=== PATIENT | female | born 1970 | race Caucasian/White ===

== ENCOUNTER 2018-11-05 05:38 | Observation (INO) ==
[2018-11-05] MEDS ORDERED: Aspirin 81 MG TAB.CHEW PO ONE (05:46)
--- NOTE | 2018-11-05 05:50 | Emergency Department Note ---
Disposition Clinical Impression: Chest pain Qualifiers: Chest pain type: unspecified Qualified Code(s): R07.9 - Chest pain, unspecified Disposition: Still a Patient Condition: Good Forms: ED Satisfaction Letter Time of Disposition: 06:29 General Adult HPI - General Stated complaint: "Trouble with my chest". Time Seen by Provider: 11/05/18 05:43 Source: patient Limitations: no limitations Nursing Notes Reviewed: Yes Vital Signs Reviewed: Yes - History of Present Illness HPI Narrative: 48-year-old female smoker presents by private vehicle from home with complaint of chest pain. She describes it as crushing and squeezing. She states that tonight's episode is the third time this happened in the past week and a half. She describes as substernal but also feels it in her mid scapular region, and states that it radiates to her left arm and the top of her shoulder. She feels it is not more severe tonight, however since it has persisted each night she was worried which prompted her visit to the emergency department. She states that her pain is now 4 out of 10, states it was more severe earlier. She denies any history CAD, PE [place], but does describe having a Approximately 10 years ago after which she was diagnosed with "pleurisy" . She denies any recent illness, abdominal pain, cough, hemoptysis, rash, diaphoresis. Pain Scale: 4 - Related Data Previous Rx's Medication Instructions Recorded Albuterol Sulfate [Albuterol 3 - 4 puff IH Q4H PRN #1 unit 07/20/17 Inhaler] PredniSONE [Deltasone] 40 mg PO DAILY #6 tablet 07/20/17 Cyclobenzaprine [Flexeril] 10 mg PO HS #12 tablet 01/13/18 Ibuprofen [Motrin] 800 mg PO Q8HR #30 tablet 01/13/18 Albuterol Sulfate [Albuterol 2 puff IH Q6HR #1 hfa.aer.ad 06/26/18 Inhaler] predniSONE [PredniSONE] 60 mg PO DAILY #15 tablet 06/26/18 Allergies Allergy/AdvReac Type Severity Reaction Status Date / Time Iodinated Contrast- Oral and Allergy Itching Verified 11/05/18 05:46 IV Dye shellfish derived Allergy Itching Verified 11/05/18 05:46 All systems ED: reviewed and negative except as stated. Review of Systems: As Per HPI Constitutional: Denies: fever, chills Eyes: Denies: eye pain ENT ED: Denies: throat pain Cardiovascular: Reports: as per HPI Respiratory: Denies: cough, dyspnea, wheezes, hemoptysis Gastrointestinal: Reports: as per HPI, nausea. 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 - Social History Smoking Status: Current every day smoker Smokeless Tobacco Status: No Alcohol use: Reports: none Drug use: Reports: none Physical Exam - General Limitations: no limitations General appearance: alert, in no apparent distress - Head Head exam: normocephalic - Eye Eye exam: Present: EOMI - ENT ENT exam: mucous membranes moist - Neck Neck exam: Present: full ROM - Chest Chest inspection: Present: symmetric chest wall rise - Cardiovascular Cardiovascular exam: Present: regular rate - Neurological Exam Neurological exam: Present: alert - Psychiatric Psychiatric exam: Present: normal affect, normal mood - Skin Skin exam: Present: warm, dry, intact, normal color Course Course Narrative: 48-year-old female smoker arrives via private vehicle with complaint of chest pain, shortness of breath, nausea, mid scapular pain with radiation into her left upper extremity. She mentions she attempted to be evaluated at the [facility]'s house however they were not there is she drove to the hospital, stating that she will call the [facility] and upset anyone in her house. Patient seen shortly upon arrival to exam room. She is hypertensive with O2 sat 93% on room air. She denies anything for her discomfort at this point. Chest pain workup ordered. Aspirin ordered. - Reevaluation(s) Reevaluation #1: Due to shift change, care of this patient will be transferred over to day shift provider Stephenie Whitman PA-C. Please see her documentation for further details on examination, evaluation, treatment and disposition the patient. Time: 06:00 Vital Signs Temperature 98.0 F 11/05/18 05:42 Pulse Rate 80 11/05/18 05:42 Respiratory Rate 18 11/05/18 05:42 Blood Pressure 196/107 11/05/18 05:42 O2 Sat by Pulse Oximetry 93 11/05/18 05:42 Temperature 98.0 F 11/05/18 05:42 Pulse Rate 80 11/05/18 05:42 Respiratory Rate 18 11/05/18 05:42 Blood Pressure 196/107 11/05/18 05:42 O2 Sat by Pulse Oximetry 93 11/05/18 05:42 Oxygen Delivery Oxygen Delivery Room Air
[2018-11-05 06:16] LABS: Basophils # 0.1 K/mcL (0.0-0.2); Basophils % 0.8 %; Eosinophils # 0.3 K/mcL (0.0-0.6); Hematocrit 47.6 % (35.3-44.9); Immature Granulocytes % 0.6 % (0-4); Lymphocytes % 34.3 %; Mean Corpuscular HGB Conc 33.6 g/dL (31.6-35.5); Mean Corpuscular Hemoglobin 32.6 pg (28.0-33.3); Mean Corpuscular Volume 96.9 fL (83.0-100.0); Mean Platelet Volume 10.2 fL (9.4-12.4); Monocytes # 0.4 K/mcL (0.0-1.3); Monocytes % 4.9 %; Neutrophils # 4.9 K/mcL (1.6-8.9); Platelet Count 206 K/mcL (140-400); Red Blood Count 4.91 M/mcL (3.82-4.97); Red Cell Distribution Width 13.3 % (11.5-14.5); Segmented Neutrophils % 56.4 %; White Blood Count 8.7 K/mcL (4.3-11.1)
[2018-11-05 06:31] LABS: BUN/Creatinine Ratio 18 (6-26); Blood Urea Nitrogen 13 mg/dL (6-20); Calcium 9.6 mg/dL (8.6-10.3); Carbon Dioxide 26 mEq/L (23-29); Chloride 104 mEq/L (98-107); Glucose 120 mg/dL (70-105); Osmolality,Calculated 291 (280-300); Potassium 3.9 mEq/L (3.5-5.1); Sodium 140 mEq/L (136-145); Troponin I < 0.03 ng/mL (< 0.04); eGFR For African Americans > 60 (> 60); eGFR For Non-African Americans > 60 (> 60)
[2018-11-05] MEDS ORDERED: 0.9 % Sodium Chloride 1,000 ML IVC ONE (06:57)
[2018-11-05] MEDS ORDERED: Nitroglycerin 0.4 MG TAB.SUBL SL PRN (07:00)
--- NOTE | 2018-11-05 07:03 | Emergency Department Note ---
Disposition Clinical Impression: Chest pain Qualifiers: Chest pain type: unspecified Qualified Code(s): R07.9 - Chest pain, unspecified Disposition: Admitted As Inpatient Condition: Fair Forms: ED Satisfaction Letter Time of Disposition: 07:46 Chest Pain HPI - General Chief Complaint: ED Chest Pain Stated Complaint: "Trouble with my chest". Time Seen by Provider: 11/05/18 05:43 Source: patient, family Mode of arrival: private vehicle Limitations: no limitations Vital Signs Reviewed: Yes Nursing Notes Reviewed: Yes - History of Present Illness Pt complaint: chest pain Onset (ago): day(s) (3) Time: 04:00 (woke her up each night) Duration: intermittent Onset: during rest (sleeping) Pain Location: substernal Severity: moderate (was a ten, upon arrival it had decreased to "about a 4") Severity scale (1-10): 4 Quality: aching, heaviness, sharp Pain Radiation: LUE, back Improves with: nothing Worsens with: nothing Context: other Associated symptoms: Reports: nausea (gone now). Denies: vomiting, diaphoresis, dyspnea, sense of impending doom, syncope, palpitations, fever, cough, leg swelling Treatments prior to arrival chest pain: none - Related Data On Oral Contraceptives: No Home Medications Medication Instructions Recorded Confirmed Lisinopril [Zestril] 10 mg PO DAILY 11/05/18 11/05/18 Allergies Allergy/AdvReac Type Severity Reaction Status Date / Time Iodinated Contrast- Oral and Allergy Itching Verified 11/05/18 05:46 IV Dye shellfish derived Allergy Itching Verified 11/05/18 05:46 All systems ED: reviewed and negative except as stated. Review of Systems: As Per HPI Constitutional: Denies: fever, chills, weakness Eyes: Denies: eye pain, vision change ENT ED: Denies: throat pain, hearing loss, epistaxis, other (no tinitis) Cardiovascular: Reports: as per HPI, chest pain, paroxysmal nocturnal dyspnea (Yesterday felt short of breath when the pain woke her up. No SOB/JP today.). Denies: palpitations, dyspnea on exertion, orthopnea, edema, syncope Respiratory: Denies: cough, dyspnea, wheezes, hemoptysis Gastrointestinal: Reports: as per HPI, nausea. Denies: abdominal pain, vomiting, diarrhea Genitourinary: Denies: dysuria Musculoskeletal: Reports: as per HPI. Denies: neck pain, arthralgia Integumentary: Denies: rash Neurological: Reports: headache (dull, frontal, 3/10, non-radiating, not first or worst headache of life. Gradual onset after arrival. Nothing makes it better or worse. Hx of similar headache in past.). 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 Absent: scleral icterus, conjunctival injection, periorbital swelling - ENT ENT exam: mucous membranes moist - Neck Neck exam: Present: normal inspection, full ROM, trachea midline. Absent: meningismus - Chest Chest inspection: Present: normal inspection, symmetric chest wall rise. Absent: tenderness, rash - Respiratory Respiratory exam: Present: normal lung sounds bilaterally. Absent: respiratory distress, wheezes, stridor, accessory muscle use, prolonged expiratory phase - Cardiovascular Cardiovascular exam: Present: regular rate, normal rhythm, normal heart sounds - Abdominal Exam Abdominal exam: Present: soft, Non-Tender. Absent: distention, guarding, mass, pulsatile mass - Extremities Exam Extremities exam: Present: normal inspection, normal capillary refill. Absent: pedal edema, joint swelling - Back Exam Back exam: Present: normal inspection - Neurological Exam Neurological exam: Present: alert, oriented X3, CN II-XII intact, normal gait - Psychiatric Psychiatric exam: Present: normal affect, normal mood - Skin Skin exam: Present: warm, dry, intact, normal color Course Course Narrative: Assumed care of this patient from Luiz Singh PA-C at shift change. Patient came to ED for eval of chest pain which has woken her from sleep three nights. Episode of dyspnea last night with the pain. No dyspnea first night or last night. No known CAD. Multiple risk factors. HEART score is 5. Patient was hypertensive upon arrival. This has improved significantly. ASA was given. NTG ordered but held as she has no chest pain at this time and her BP is near normal. Labs, CXR and ECG are normal. Will admit for further eval and to R/O ACS. Dimer added as patient's pain radiates to axilla and she ad an episode of dyspnea yesterday. Her O2 sats have been between 92% and 94% on room air - today and historically - however she denies cough, hemoptysis leg pain or swelling, fever, recent travel or procedures/ surgeries, immobilization or family hx of DVT/PE. Wells score is Zero. D-Dimer is normal. Chest pain free upon my re-exam. BP 145/88. C/O 3/10 headache - dull, similar to previous. HEART score is 5. Will admit for rule out. Vital Signs Temperature 98.0 F 11/05/18 05:42 Pulse Rate 80 11/05/18 05:42 Respiratory Rate 18 11/05/18 05:42 Blood Pressure 196/107 11/05/18 05:42 O2 Sat by Pulse Oximetry 93 11/05/18 05:42 Temperature 98.0 F 11/05/18 05:42 Pulse Rate 75 11/05/18 06:37 Respiratory Rate 18 11/05/18 06:37 Blood Pressure 145/94 11/05/18 06:37 O2 Sat by Pulse Oximetry 92 11/05/18 06:37 Oxygen Delivery Oxygen Delivery Room Air Chest Pain - Lab Data Result diagrams: 11/05/18 05:53 11/05/18 05:53 Lab Results 11/05/18 11/05/18 Range/Units 05:53 05:53 WBC 8.7 (4.3-11.1) K/mcL RBC 4.91 (3.82-4.97) M/mcL Hgb 16.0 H (11.5-15.4) g/dL Hct 47.6 H (35.3-44.9) % MCV 96.9 (83.0-100.0) fL MCH 32.6 (28.0-33.3) pg MCHC 33.6 (31.6-35.5) g/dL RDW 13.3 (11.5-14.5) % Plt Count 206 (140-400) K/mcL MPV 10.2 (9.4-12.4) fL Immature Gran % 0.6 (0-4) % Seg Neutrophils % 56.4 % Lymphocytes % 34.3 % Monocytes % 4.9 % Eosinophils % 3.0 % Basophils % 0.8 % Neutrophils # 4.9 (1.6-8.9) K/mcL Lymphocytes # 3.0 (0.6-4.6) K/mcL Monocytes # 0.4 (0.0-1.3) K/mcL Eosinophils # 0.3 (0.0-0.6) K/mcL Basophils # 0.1 (0.0-0.2) K/mcL Sodium 140 (136-145) mEq/L Potassium 3.9 (3.5-5.1) mEq/L Chloride 104 (98-107) mEq/L Carbon Dioxide 26 (23-29) mEq/L BUN 13 (6-20) mg/dL Creatinine 0.72 (0.60-1.20) mg/dL Est GFR ( Amer) > 60 (> 60) Est GFR (Non-Af Amer) > 60 (> 60) BUN/Creatinine Ratio 18 (6-26) Glucose 120 H (70-105) mg/dL Calculated Osmolality 291 (280-300) Calcium 9.6 (8.6-10.3) mg/dL Troponin I < 0.03 (< 0.04) ng/mL Heart Score - Score History: Highly Suspicious EKG: Normal Age: 45-65 Risk Factors: Equal/Greater than 3 risk factor or history of atherosclerotic disease Troponin: Less than normal limit HEART Score Total: 5
[2018-11-05 07:32] LABS: INR 0.9; Prothrombin Time 10.6 Seconds (9.4-12.1)
[2018-11-05 07:34] LABS: Activated Partial Thrombo Time 32.6 Seconds (26.0-36.0)
--- NOTE | 2018-11-05 07:35 | Emergency Department Note ---
Disposition Clinical Impression: Chest pain Qualifiers: Chest pain type: unspecified Qualified Code(s): R07.9 - Chest pain, unspecified Disposition: Admitted As Inpatient Condition: Good Referrals: Essence Ramsay CNP [Primary Care Provider] - Forms: ED Satisfaction Letter Time of Disposition: 07:35 General Adult HPI - General Chief complaint: ED Chest Pain Stated complaint: "Trouble with my chest". Time Seen by Provider: 11/05/18 05:43 Source: patient, family Mode of arrival: private vehicle Limitations: no limitations - History of Present Illness Pain Scale: 4 - Related Data Home Medications Medication Instructions Recorded Confirmed Lisinopril [Zestril] 10 mg PO DAILY 11/05/18 11/05/18 Allergies Allergy/AdvReac Type Severity Reaction Status Date / Time Iodinated Contrast- Oral and Allergy Itching Verified 11/05/18 05:46 IV Dye shellfish derived Allergy Itching Verified 11/05/18 05:46 Constitutional: Denies: fever, chills, weakness Eyes: Denies: eye pain, vision change ENT ED: Denies: throat pain, hearing loss, epistaxis, other (no tinitis) Cardiovascular: Reports: as per HPI, chest pain, paroxysmal nocturnal dyspnea (Yesterday felt short of breath when the pain woke her up. No SOB/JP today.). Denies: palpitations, dyspnea on exertion, orthopnea, edema, syncope Respiratory: Denies: cough, dyspnea, wheezes, hemoptysis Gastrointestinal: Reports: as per HPI, nausea. Denies: abdominal pain, vomiting, diarrhea Genitourinary: Denies: dysuria Musculoskeletal: Reports: as per HPI. Denies: neck pain, arthralgia Integumentary: Denies: rash Neurological: Reports: headache (dull, frontal, 3/10, non-radiating, not first or worst headache of life. Gradual onset after arrival. Nothing makes it better or worse. Hx of similar headache in past.). 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 - Social History Smoking Status: Current every day smoker Smokeless Tobacco Status: No Alcohol use: Reports: none Drug use: Reports: none Physical Exam - General Limitations: no limitations General appearance: alert, in no apparent distress Course Vital Signs Temperature 98.0 F 11/05/18 05:42 Pulse Rate 80 11/05/18 05:42 Respiratory Rate 18 11/05/18 05:42 Blood Pressure 196/107 11/05/18 05:42 O2 Sat by Pulse Oximetry 93 11/05/18 05:42 Temperature 98.0 F 11/05/18 05:42 Pulse Rate 73 11/05/18 07:02 Respiratory Rate 16 11/05/18 07:02 Blood Pressure 141/85 11/05/18 07:02 O2 Sat by Pulse Oximetry 94 11/05/18 07:02 Oxygen Delivery Oxygen Delivery Room Air Medical Decision Making - Lab Data Result diagrams: 11/05/18 05:53 11/05/18 05:53 Lab Results 11/05/18 11/05/18 Range/Units 05:53 05:53 WBC 8.7 (4.3-11.1) K/mcL RBC 4.91 (3.82-4.97) M/mcL Hgb 16.0 H (11.5-15.4) g/dL Hct 47.6 H (35.3-44.9) % MCV 96.9 (83.0-100.0) fL MCH 32.6 (28.0-33.3) pg MCHC 33.6 (31.6-35.5) g/dL RDW 13.3 (11.5-14.5) % Plt Count 206 (140-400) K/mcL MPV 10.2 (9.4-12.4) fL Immature Gran % 0.6 (0-4) % Seg Neutrophils % 56.4 % Lymphocytes % 34.3 % Monocytes % 4.9 % Eosinophils % 3.0 % Basophils % 0.8 % Neutrophils # 4.9 (1.6-8.9) K/mcL Lymphocytes # 3.0 (0.6-4.6) K/mcL Monocytes # 0.4 (0.0-1.3) K/mcL Eosinophils # 0.3 (0.0-0.6) K/mcL Basophils # 0.1 (0.0-0.2) K/mcL Sodium 140 (136-145) mEq/L Potassium 3.9 (3.5-5.1) mEq/L Chloride 104 (98-107) mEq/L Carbon Dioxide 26 (23-29) mEq/L BUN 13 (6-20) mg/dL Creatinine 0.72 (0.60-1.20) mg/dL Est GFR ( Amer) > 60 (> 60) Est GFR (Non-Af Amer) > 60 (> 60) BUN/Creatinine Ratio 18 (6-26) Glucose 120 H (70-105) mg/dL Calculated Osmolality 291 (280-300) Calcium 9.6 (8.6-10.3) mg/dL Troponin I < 0.03 (< 0.04) ng/mL Attestation Statement - Attestation Attestation: For this encounter, I have reviewed the REFRIGERATION MECHANIC or PA documentation, treatment plan, and medical decision making; and I have had face to face time with this patient. 48 year old female presnets ot he ED with complaints of chest pain that is in her mid chest and radiates into her axilla. moderate heart score of at least 4. ASA therapy given, chest pain free now. non ishcemic ekg, and troponin negative. Will admit to [facility] for cp r/o ACS. D-dimer pending to rule out PE
[2018-11-05] MEDS ORDERED: Naloxone 0.4 MG/ML INJ IVP PRN (08:56)
--- NOTE | 2018-11-05 12:05 | Internal Med History&Physical ---
<Liborio Hartley - Last Filed: 11/05/18 11:52> Date of Encounter: 11/05/18 Time of Encounter: 11:52 Internal Medicine - H&P: HPI Chief complaint: chest pain Admitted From: Emergency Dept Plans for Post Hospital Care: Home History of present illness: Ms. Capps is a 48 year old female with PMHx of hypertension, obesity. She arrives to the emergency department today with chief complaint of chest pain that woke her up form sleep. This happened last night and again two nights ago. Her chest pain felt more like a deep pressure that radiated to her right arm and she also felt this pressure in between her shoulder blades. She states she has had a cardiac catheterization in the past about 15 years ago that was negative. She has not noticed any exacerbating or relieving factors with this chest pain. patient does have a history of morbid obesity and is a current smoker and smokes 1 pack per day. she admits to nausea without vomiting. she denies fevers, chills, shortness of breath, hematochezia, melena, hematuria. Past Med Surg Social Fam HX - Past Medical History Medical history: GERD, hypertension, other Additional medical history: pleursy Psychiatric history: anxiety - Past Surgical History Surgical History: , hysterectomy Additional surgical history: left foot. heart cath no stents - Social History Smoking Status: Current every day smoker Packs per day: 2 Smokeless Tobacco Status: No Alcohol use: none Drug use: none Internal Medicine - H&P: Meds Acetaminophen/Diphenhydramine [Eql Acetaminophen Pm Geltab] 2 - 3 tab PO HS PRN 11/05/18 [History] Lisinopril-HCTZ 20-12.5 [Prinzide 20-12.5] 1 tab PO BID 11/05/18 [History] Allergy/AdvReac Type Severity Reaction Status Date / Time Iodinated Contrast- Oral and Allergy "Itching, Verified 11/05/18 14:18 IV Dye FLUSHED, WARM" shellfish derived Allergy Itching Verified 11/05/18 05:46 All Systems PM: A 10-system review of systems was performed and is negative for pertinent findings except as documented above in the HPI. - Constitutional Constitutional: as per HPI - EENT Eyes: as per HPI Ears: as per HPI Nose, mouth and throat: as per HPI - Breasts Breasts: as per HPI - Cardiovascular Cardiovascular ROS IM: as per HPI - Respiratory Respiratory: as per HPI - Gastrointestinal Gastrointestinal: as per HPI - Genitourinary Genitourinary: as per HPI Menstruation: as per HPI - Musculoskeletal Musculoskeletal ROS IM: as per HPI - Integumentary Integumentary IM: as per HPI - Neurological Neurological ROS: as per HPI - Psychiatric Psychiatric: as per HPI - Endocrine Endocrine IM: as per HPI - Hematologic/Lymphatic Hematologic/Lymphatic: as per HPI - Allergic/Immunologic Allergic/Immunologic: as per HPI - Constitutional Vitals: Temp Pulse Resp BP Pulse Ox 98.1 F 78 16 134/82 91 11/05/18 10:00 11/05/18 10:00 11/05/18 10:00 11/05/18 10:00 11/05/18 10:00 Exam: morbidly obese - Head Head exam: Present: atraumatic, normocephalic - Neck Neck exam general surgery: Present: supple, trachea midline - Respiratory Respiratory exam: Present: CTAB - Cardiovascular Cardiovascular exam: Present: RRR, +S1, +S2. Absent: systolic murmur - GI/Abdominal GI/Abdominal exam: Present: normal bowel sounds, soft. Absent: distended, tenderness - Extremities Exam Extremities exam: Absent: cyanotic, pedal edema - Neurological Exam Neurological exam: Present: alert, oriented X3, no focal deficits - Psychiatric Psychiatric exam: Present: normal affect, normal mood - Skin Skin exam: Present: intact Internal Med - H&P Results - Labs CBC & Chem 7: 11/05/18 05:53 11/05/18 05:53 Labs: Short CBC 11/05/18 Range/Units 05:53 WBC 8.7 (4.3-11.1) K/mcL Hgb 16.0 H (11.5-15.4) g/dL Hct 47.6 H (35.3-44.9) % Plt Count 206 (140-400) K/mcL Neutrophils # 4.9 (1.6-8.9) K/mcL BMP 11/05/18 05:53 Sodium 140 Potassium 3.9 Chloride 104 Carbon Dioxide 26 BUN 13 Creatinine 0.72 Glucose 120 H Calcium 9.6 Cardiac Enzymes 11/05/18 Range/Units 05:53 Troponin I < 0.03 (< 0.04) ng/mL - Impressions ITS Impressions Chest X-Ray 11/05/18 05:46 IMPRESSION: No acute findings. D/ / Paul Oliva / Paul Oliva Interpreting Provider: Paul Oliva - Assessment and Plan (1) Chest pain Status: Acute Assessment and plan: substernal chest pain that woke her up in the middle of the night, states it felt more like a chest pressure. initial troponin negative. CXR unremarkable. EKG shows no ischemic changes Plan: trend troponins NPO after midnight stress test in the morning. continue aspirin Qualifiers: Chest pain type: unspecified Qualified Code(s): R07.9 - Chest pain, unspecified (2) Hypertension Status: Chronic Assessment and plan: continue lisinopril Qualifiers: Hypertension type: essential hypertension Qualified Code(s): I10 - Essential (primary) hypertension (3) Morbid obesity with BMI of 45.0-49.9, adult Status: Acute Assessment and plan: lifestyle modifications advised (4) Tobacco abuse Status: Acute Assessment and plan: nicotine patch (5) DVT prophylaxis Status: Acute Assessment and plan: heparin SQ - Time Spent With Patient Total time spent is greater than 50% in coordination of care (as documented) at patient's floor/unit and/or counseling patient: <Arina Patterson Z - Last Filed: 11/08/18 06:44> Date of Encounter: 11/05/18 Internal Medicine - H&P: HPI History of present illness: Ms. Capps is a 48 year old female All Systems PM: A 10-system review of systems was performed and is negative for pertinent findings except as documented above in the HPI. - Constitutional Vitals: Temp Pulse Resp BP Pulse Ox 97.7 F 76 16 136/84 93 11/07/18 07:33 11/07/18 07:33 11/07/18 07:33 11/07/18 07:33 11/07/18 07:33 Internal Med - H&P Results - Labs CBC & Chem 7: 11/06/18 01:38 11/07/18 01:26 - Impressions ITS Impressions Chest X-Ray 11/05/18 05:46 IMPRESSION: No acute findings. D/ / Paul Oliva / Paul Oliva Interpreting Provider: Paul Oliva Echocardiogram 11/06/18 09:03 Impressions: LVEF 60-65%. Normal LV chamber size and function. Mild concentric left ventricular hypertrophy. Mild left ventricular diastolic dysfunction. Normal right ventricular structure and function. Unable to estimate RVSP due to lack of TR jet. No significant valvular dysfunction. Left Ventricular Wall Motion: Rest Echo Findings All wall segments showed normal motion. Findings: Study Quality * Technically adequate exam. ECG Findings * Normal sinus rhythm. Left Ventricle * LVEF 60-65%. * Normal LV chamber size and function. * Mild concentric left ventricular hypertrophy. * Mild left ventricular diastolic dysfunction. Right Ventricle * Normal right ventricular structure and function. Left Atrium * Mildly dilated left atrium. Right Atrium * Mildly dilated right atrium. Interatrial Septum * Interatrial septum not well evaluated. Aortic Valve * Aortic valve not well visualized. * No aortic regurgitation. * No aortic stenosis. Mitral Valve * Normal mitral valve structure and function. * No mitral stenosis. * No mitral regurgitation. Tricuspid Valve * Normal tricuspid valve structure and function. * No tricuspid regurgitation. * Unable to estimate RVSP due to lack of TR jet. Pulmonic Valve * Pulmonic valve not well visualized. Aorta * Normally sized aortic root. Pericardium * The pericardium appears normal. IVC * Normal IVC dimensions and inspiratory collapse. Pulmonary Artery * Pulmonary artery not well visualized. - Assessment and Plan (1) Chest pain Status: Acute Qualifiers: Chest pain type: unspecified Qualified Code(s): R07.9 - Chest pain, unspecified (2) Hypertension Status: Chronic Qualifiers: Hypertension type: essential hypertension Qualified Code(s): I10 - Essential (primary) hypertension (3) Morbid obesity with BMI of 45.0-49.9, adult Status: Chronic (4) DVT prophylaxis Status: Acute (5) Tobacco abuse Status: Chronic - Time Spent With Patient Total time spent is greater than 50% in coordination of care (as documented) at patient's floor/unit and/or counseling patient: - Attending Attestation I performed a history and physical examination of the patient and discussed his management with the resident. I reviewed the residents note and agree with the documented findings and plan of care.
[2018-11-05] MEDS: Nicotine 21 MG PATCH.TD24 TD SCH (12:31)
[2018-11-05] MEDS: Acetaminophen 325 MG TABLET PO PRN (16:02)
[2018-11-05] MEDS: *HR* Heparin 5,000 UNIT/ML VIAL SQ SCH (18:59)
[2018-11-06 02:48] LABS: Hematocrit 44.6 % (35.3-44.9); Mean Corpuscular HGB Conc 33.6 g/dL (31.6-35.5); Mean Corpuscular Hemoglobin 32.7 pg (28.0-33.3); Mean Corpuscular Volume 97.2 fL (83.0-100.0); Mean Platelet Volume 10.6 fL (9.4-12.4); Platelet Count 198 K/mcL (140-400); Red Blood Count 4.59 M/mcL (3.82-4.97); Red Cell Distribution Width 13.2 % (11.5-14.5); White Blood Count 8.9 K/mcL (4.3-11.1)
[2018-11-06 03:09] LABS: BUN/Creatinine Ratio 23 (6-26); Blood Urea Nitrogen 17 mg/dL (6-20); Carbon Dioxide 25 mEq/L (23-29); Chloride 105 mEq/L (98-107); Glucose 128 mg/dL (70-105); Magnesium 1.9 mg/dL (1.6-2.6); Osmolality,Calculated 289 (280-300); Phosphorous 4.9 mg/dL (2.7-4.5); Potassium 3.7 mEq/L (3.5-5.1); Sodium 138 mEq/L (136-145); eGFR For African Americans > 60 (> 60); eGFR For Non-African Americans > 60 (> 60)
[2018-11-06] MEDS ORDERED: Regadenoson 0.4 MG/5 ML SYRINGE IVP ONE (06:18)
[2018-11-06] MEDS: Aspirin 81 MG TAB.CHEW PO SCH (09:00)
[2018-11-06] MEDS: Nicotine 21 MG PATCH.TD24 TD SCH ×2 (09:00→14:19)
[2018-11-06] MEDS: *HR* Heparin 5,000 UNIT/ML VIAL SQ SCH ×2 (09:00→17:05)
--- NOTE | 2018-11-06 12:03 | Internal Med Progress Note ---
Hospitalist Progress Note - Encounter Date of Encounter: 11/06/18 Time of Encounter: 12:00 - Subjective Interval History: Pt seen and examined in the room. She is chest pain free currently. - Exam Vitals: Temp Pulse Resp BP Pulse Ox 98.3 F 74 18 129/78 95 11/06/18 07:21 11/06/18 07:21 11/06/18 07:21 11/06/18 07:21 11/06/18 07:21 Exam: PHYSICAL EXAMINATION: GENERAL APPEARANCE: The patient is alert, oriented and in no acute distress. HEENT: Head is normocephalic. The sinuses are nontender. Pupils are equal and reactive. The nares are patent. Oropharynx clear without lesions. NECK: Supple without lymphadenopathy. HEART: Regular rate and rhythm. LUNGS: No crackles or wheezes are heard. ABDOMEN: Soft, nontender, nondistended with good bowel sounds heard. Inguinal area is normal. EXTREMITIES: Without cyanosis, clubbing or edema. NEUROLOGICAL: Gross nonfocal. SKIN: Warm and dry without any rash. - Assessment and Plan (1) Chest pain Current Visit: Yes Status: Acute Assessment and Plan: 78-year-old female presented with typical chest pain, she does have risk factors including hypertension, obesity, smoking. Workup so far revealed negative serial troponin, unremarkable EKG, and a normal chest x-ray. Pending stress test and echocardiogram. (2) Hypertension Current Visit: No Status: Chronic Assessment and Plan: BP controlled currently, continue home medication. (3) Morbid obesity with BMI of 45.0-49.9, adult Current Visit: Yes Status: Acute Assessment and Plan: Weight control discussed with patient. (4) Tobacco abuse Current Visit: Yes Status: Acute Assessment and Plan: Smoking cessation discussed with patient. (5) DVT prophylaxis Current Visit: Yes Status: Acute Assessment and Plan: Heparin subcutaneous. - Time Spent with Patient Total time spent is greater than 50% in coordination of care (as documented) at patient's floor/unit and/or counseling patient: Greater than 35 minutes Plan of Care Discussed with: patient Internal Medicine: Result - Labs CBC & Chem 7: 11/06/18 01:38 11/06/18 01:38 Labs: Short CBC 11/06/18 Range/Units 01:38 WBC 8.9 (4.3-11.1) K/mcL Hgb 15.0 (11.5-15.4) g/dL Hct 44.6 (35.3-44.9) % Plt Count 198 (140-400) K/mcL BMP 11/06/18 01:38 Sodium 138 Potassium 3.7 Chloride 105 Carbon Dioxide 25 BUN 17 Creatinine 0.73 Glucose 128 H Calcium 9.0 Cardiac Enzymes 11/05/18 11/05/18 Range/Units 11:52 17:58 Troponin I < 0.03 < 0.03 (< 0.04) ng/mL - ABG Interpretation ABG results: PT/INR, D-dimer PT 10.6 Seconds (9.4-12.1) 11/05/18 05:53 308 ng/mLFEU (0-500) 11/05/18 05:53 Consult Discharge Plan - Plan Referrals: Essence Ramsay CNP [Primary Care Provider] - (1) Chest pain Qualifiers: Chest pain type: unspecified Qualified Code(s): R07.9 - Chest pain, unspecified (2) Hypertension Qualifiers: Hypertension type: essential hypertension Qualified Code(s): I10 - Essential (primary) hypertension
[2018-11-06] MEDS: Acetaminophen 325 MG TABLET PO PRN (14:19)
--- NOTE | 2018-11-06 18:04 | Electrocardiograph Report ---
[place] [facility] Test Date: 2018-11-05 Pat Name: Blossom Capps Department: EXAM4 Room: 3B54 Gender: F Pointer Helper: : 1970 Requested By: Julián Singh Order Number: [id number] Reading MD: Dwaine Marin Measurements Intervals [place] Rate: 84 P: 39 MS: 159 QRS: 25 QRSD: 85 T: 45 QT: 372 QTc: 440 Interpretive Statements Sinus rhythm Electronically Signed On 11-06-2018 18:02:56 EDT by Dwaine Marin
[2018-11-07] MEDS ORDERED: Mag Hydrox/Al Hydrox/Simeth 30 ML UDC PO PRN (01:04)
[2018-11-07 02:40] LABS: BUN/Creatinine Ratio 26 (6-26); Blood Urea Nitrogen 16 mg/dL (6-20); Calcium 9.4 mg/dL (8.6-10.3); Carbon Dioxide 25 mEq/L (23-29); Chloride 105 mEq/L (98-107); Glucose 138 mg/dL (70-105); Osmolality,Calculated 291 (280-300); Phosphorous 4.2 mg/dL (2.7-4.5); Potassium 3.8 mEq/L (3.5-5.1); Sodium 139 mEq/L (136-145); eGFR For African Americans > 60 (> 60); eGFR For Non-African Americans > 60 (> 60)
[2018-11-07] MEDS: *HR* Heparin 5,000 UNIT/ML VIAL SQ SCH (03:15)
[2018-11-07 07:34] VITALS: BP 136/84
[2018-11-07] MEDS: Acetaminophen 325 MG TABLET PO PRN (08:04)
[2018-11-07] MEDS: Nicotine 21 MG PATCH.TD24 TD SCH (08:04)
[2018-11-07] MEDS: Aspirin 81 MG TAB.CHEW PO SCH (08:04)
--- NOTE | 2018-11-07 10:09 | Discharge Summary ---
Orders not resulted at time of discharge: Pending orders 11/05/18 11:58 NM deanne perf SPECT multi [NM] Routine Date of Encounter: 11/07/18 Time of Encounter: 10:09 - Discharge Diagnosis (1) Chest pain Status: Acute Qualifiers: Chest pain type: unspecified Qualified Code(s): R07.9 - Chest pain, unspecified (2) Hypertension Status: Chronic Qualifiers: Hypertension type: essential hypertension Qualified Code(s): I10 - Essential (primary) hypertension (3) Morbid obesity with BMI of 45.0-49.9, adult Status: Acute (4) Tobacco abuse Status: Acute (5) DVT prophylaxis Status: Acute Hospital course: Ms. Capps is a 48 year old female - Time Spent with Patient Total time spent providing and/or coordinating discharge services: - Discharge Medications Prescriptions: No Action Lisinopril-HCTZ 20-12.5 [Prinzide 20-12.5] 1 tab PO BID Acetaminophen/Diphenhydramine [Eql Acetaminophen Pm Geltab] 2 - 3 tab PO HS PRN PRN Reason: Sleep Home Medications: Acetaminophen/Diphenhydramine [Eql Acetaminophen Pm Geltab] 2 - 3 tab PO HS PRN 11/05/18 [History] Lisinopril-HCTZ 20-12.5 [Prinzide 20-12.5] 1 tab PO BID 11/05/18 [History] Allergies/Adverse Reactions: Allergy/AdvReac Type Severity Reaction Status Date / Time Iodinated Contrast- Oral and Allergy "Itching, Verified 11/05/18 14:18 IV Dye FLUSHED, WARM" shellfish derived Allergy Itching Verified 11/05/18 05:46 Date of admission: 11/05/18 08:22 Primary care physician: Essence Ramsay - Constitutional Vitals: Temp Pulse Resp BP Pulse Ox 97.7 F 76 16 136/84 93 11/07/18 07:33 11/07/18 07:33 11/07/18 07:33 11/07/18 07:33 11/07/18 07:33 - Patient Status Condition: Fair - Discharge Instructions Follow Up With: Essence Ramsay, YEAST CULTURE DEVELOPER [Primary Care Provider] -
--- NOTE | 2018-11-07 10:19 | Discharge Summary ---
- NOTES TO OUTPATIENT PROVIDER Notes to Outpatient Provider: f/u with PCP within a week. Orders not resulted at time of discharge: Pending orders 11/05/18 11:58 NM deanne perf SPECT multi [NM] Routine Date of Encounter: 11/07/18 Time of Encounter: 10:17 - Discharge Diagnosis (1) Chest pain Priority: Primary Status: Acute Qualifiers: Chest pain type: unspecified Qualified Code(s): R07.9 - Chest pain, unspecified (2) Hypertension Priority: Secondary Status: Chronic Qualifiers: Hypertension type: essential hypertension Qualified Code(s): I10 - Essential (primary) hypertension (3) Morbid obesity with BMI of 45.0-49.9, adult Priority: Secondary Status: Chronic (4) Tobacco abuse Priority: Secondary Status: Chronic (5) DVT prophylaxis Priority: Primary Status: Acute Hospital course: Ms. Capps is a 48 year old female with PMHx of hypertension, obesity. She arrives to the emergency department today with chief complaint of chest pain that woke her up form sleep. This happened last night and again two nights ago. Her chest pain felt more like a deep pressure that radiated to her right arm and she also felt this pressure in between her shoulder blades. She states she has had a cardiac catheterization in the past about 15 years ago that was negative. She has not noticed any exacerbating or relieving factors with this chest pain. patient does have a history of morbid obesity and is a current smoker and smokes 1 pack per day. she admits to nausea without vomiting. she denies fevers, chills, shortness of breath, hematochezia, melena, hematuria. Serial troponin was negative, EKG has no acute ST-T change, echocardiogram and stress test were both unremarkable. The patient chest pain has resolved after admission. Patient will be discharged home today, she was counseled about smoking cessation, weight control, blood pressure and cholesterol control. She will continue follow-up with PCP as scheduled. Discharge discussed with: patient Time spent discussing smoking cessation with patient: more than 10 minutes - Time Spent with Patient Total time spent providing and/or coordinating discharge services: Time spent: Greater than 30 minutes - Discharge Medications Prescriptions: Continued Lisinopril-HCTZ 20-12.5 [Prinzide 20-12.5] 1 tab PO BID Acetaminophen/Diphenhydramine [Eql Acetaminophen Pm Geltab] 2 - 3 tab PO HS PRN PRN Reason: Sleep Home Medications: Acetaminophen/Diphenhydramine [Eql Acetaminophen Pm Geltab] 2 - 3 tab PO HS PRN 11/05/18 [History] Lisinopril-HCTZ 20-12.5 [Prinzide 20-12.5] 1 tab PO BID 11/05/18 [History] Allergies/Adverse Reactions: Allergy/AdvReac Type Severity Reaction Status Date / Time Iodinated Contrast- Oral and Allergy "Itching, Verified 11/05/18 14:18 IV Dye FLUSHED, WARM" shellfish derived Allergy Itching Verified 11/05/18 05:46 Date of admission: 11/05/18 08:22 Primary care physician: Essence Ramsay Anticipated date of discharge: 11/07/18 - Constitutional Vitals: Temp Pulse Resp BP Pulse Ox 97.7 F 76 16 136/84 93 11/07/18 07:33 11/07/18 07:33 11/07/18 07:33 11/07/18 07:33 11/07/18 07:33 General appearance: Present: A&O X 3 Exam: PHYSICAL EXAMINATION: GENERAL APPEARANCE: The patient is alert, oriented and in no acute distress. HEENT: Head is normocephalic. The sinuses are nontender. Pupils are equal and reactive. The nares are patent. Oropharynx clear without lesions. NECK: Supple without lymphadenopathy. HEART: Regular rate and rhythm. LUNGS: No crackles or wheezes are heard. ABDOMEN: Soft, nontender, nondistended with good bowel sounds heard. Inguinal area is normal. EXTREMITIES: Without cyanosis, clubbing or edema. NEUROLOGICAL: Gross nonfocal. SKIN: Warm and dry without any rash. - Patient Status Disposition: Home, Self-Care Condition: Fair Functional capacity at discharge: independent ambulation Overall status at discharge: patient is back to baseline - Discharge Instructions Follow Up With: Essence Ramsay, SOCIAL INSURANCE ADMINISTRATOR [Primary Care Provider] - - Diet and Activity Activity: increase activity as tolerated Diet: low fat, low cholesterol, low salt diet
== END 2018-11-07 10:48 | disposition home or self-care (01) ==
LOC: 3BNU 05:38 → EMEROOARM 05:38 → 3BNU 09:23
PROVIDERS: ADMIT Internal Medicine Nephrology; ATTEND Internal Medicine Nephrology